=== PATIENT | male | born 1950 | race Caucasian/White ===

== ENCOUNTER 2023-10-06 09:43 | Outpatient (RCR) | payer MEDICARE, SELFPAY ==
--- NOTE | 2023-10-06 13:37 | OPREHPOC ---
Outpatient Therapy Plan of Care This is a Multidisciplinary Plan of Care that may contain components documented by all disciplines (PT, OT, and ST.) PT Problem 1 PT Problem #1 Knowledge Deficit PT Goal 1 Goal patient to demonstrate independence with HEP Target Visit 5 PT Problem 2 PT Problem #2 Pain PT Goal 1 Goal 1. patient to report highest pain at 2/10 2. patient to report ability to drive with no increase in pain Target Visit 10 PT Problem 3 PT Problem #3 Impaired Range of Motion PT Goal 1 Goal patient to demonstrate B cervical rotation to 60 deg to improve ability to drive Target Visit 10 PT Problem 4 PT Problem #4 Impaired Functional Mobil PT Goal 1 Goal 1. 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 patient to score 20% improvement on QuickDash 3. patient to report ability to shoot recreationally with no increase in R shoulder pain Target Visit 10
--- NOTE | 2023-10-06 13:38 | PTOPEVAL1 ---
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 He reports that he had R RTC repair about 10 years ago. He reports difficulty driving to look over his shoulder, mechanical work, and shooting. He report he feels a constant dull pain. Reported Pain Level Pain Score 5,0: Self Report Assessment PT Clinical Summary Mr. Cavanaugh is a 72 year old male who presents to PT with L sided neck pain and R shoulder pain. He demonstrates decreased R shoulder strength, decreased cervical ROM and impaired posture limiting his ability to turn his head to drive, perform mechanical work and participate in recreational shooting. He would benefit from skilled PT to address impairments and return to PLOF. Plan of Care Interventions Electrical Stimulation,Hot Pack/Cold Pack,Manual Therapy,Mechanical Traction,Neuro Re-education, Patient/Caregiver Educati,Therapeutic Activities, Therapeutic Exercise PT Services Indicated Yes Treatment Frequency and 2x weekly for 10 visits Duration These treatments will address the objective and functional deficits as defined above. The patient will be advanced safely and appropriately in order for the patient to progress towards his/her prior level of function. Additional exercises will be introduced and as well as a comprehensive home exercise program upon discharge, if needed, ?to ensure carryover of functional gains achieved in the clinic. This treatment plan has been reviewed and agreement upon by the patient.
--- NOTE | 2023-10-23 07:14 | PCPTNOTE ---
patient canceled due to feeling better
--- NOTE | 2023-10-29 10:22 | OPREHPOC ---
Outpatient Therapy Plan of Care This is a Multidisciplinary Plan of Care that may contain components documented by all disciplines (PT, OT, and ST.) PT Problem 1 PT Problem #1 Knowledge Deficit PT Goal 1 Goal patient to demonstrate independence with HEP Target Visit 5 Progress Met PT Problem 2 PT Problem #2 Pain PT Goal 1 Goal 1. patient to report highest pain at 2/10 2. patient to report ability to drive with no increase in pain Target Visit 10 Progress Met PT Problem 3 PT Problem #3 Impaired Range of Motion PT Goal 1 Goal patient to demonstrate B cervical rotation to 60 deg to improve ability to drive Target Visit 10 Progress Met PT Problem 4 PT Problem #4 Impaired Functional Mobil PT Goal 1 Goal 1. 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 patient to score 20% improvement on [employer]ash 3. patient to report ability to shoot recreationally with no increase in R shoulder pain Target Visit 10 Progress Met
--- NOTE | 2023-10-29 10:22 | PTOPDC ---
Assessment and note entered by Karyn Ac DPT Evaluation Information Assessment Status Discharge Diagnosis neck pain, R shoulder pain Onset 09/04/23 Subjective Information patient reports he has not had any pain recently. he report he is able to turn his head to drive with no limitations. he reports he is independent with HEP Reported Pain Level Pain Score 0,0: Self Report Assessment PT Clinical Summary Mr. Cavanaugh attended 6 visits of skilled PT and met all goals. 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 He has been compliant with HEP and is appropriate for DC at this time. Plan of Care PT Services Indicated No
== END 2023-10-29 10:29 | disposition home or self-care (01) ==
LOC: CHSPT 09:43
PROVIDERS: Visit Provider Physician Assistant Medical
DX: M54.2 Cervicalgia (principal); M67.911 Unspecified disorder of synovium and tendon, right shoulder
CPT/HCPCS: 97014; 97110; 97140; 97161; G0283

== ENCOUNTER 2024-05-10 00:37 | Day surgery (SDC) | payer MEDICARE, SELFPAY ==
[2024-04-29 11:42] VITALS: BMI 29.9
--- NOTE | 2024-04-29 11:53 | SUR.PREOP ---
Spoke with patient regarding medication plavix. Pt. verbalizes understanding that the last dose of plavixis to be taken on 05/04/2024 and the Endoscopist will instruct them when to restart after the procedure.
[2024-05-10] MEDS: LACTATED RINGERS 1,000 ML 150 ML IV CONT (08:10)
[2024-05-10 08:11] VITALS: BP 136/69; PULSE 55; RESP 16; TEMP 36.1; O2SAT 98
[2024-05-10 08:29] LABS: Glucose Point of Care 76 mg/dl (65-105)
--- NOTE | 2024-05-10 08:29 | WPDANESEPPF ---
Anes - Initial Pre Proc Eval Procedure: Operation Date: 05/10/24 09:00 Proposed Procedures p Colonoscopy - Deven Medina MD Date/Time: 05/10/24 08:29 Surgeon: Deven Medina MD Pre Op Diagnosis: Family history colon polyps Patient Data Age: 73 Gender: M Height: 1.83 m Weight: 100.6 kg Last Vital Signs Temp 96.9 F L 05/10/24 08:11 Pulse 55 L 05/10/24 08:11 Resp 16 05/10/24 08:11 BP 136/69 05/10/24 08:11 Pulse Ox 98 05/10/24 08:11 O2 Del Method Room Air 05/10/24 08:11 Allergies Allergy/AdvReac Type Severity Reaction Status Date / Time sertraline AdvReac worsening Uncoded 05/10/24 07:53 erectile dysfunction Home Medications Medication Instructions Recorded Confirmed Type aspirin 81 mg tablet,delayed 81 mg PO DAILY 04/04/22 05/10/24 History release (Adult Low Dose Aspirin) cyanocobalamin (vitamin B-12) 1,000 mcg PO DAILY 04/04/22 04/29/24 History 1,000 mcg capsule esomeprazole magnesium 20 mg 20 mg PO DAILY 04/04/22 05/10/24 History capsule,delayed release (Nexium) ferrous gluconate 324 mg (37.5 mg 324 mg PO BID 04/04/22 05/10/24 History iron) tablet ccbfrdgwhxrf-pec-ckubh acid-vit 1 tablet PO DAILY 04/04/22 05/10/24 History K-lycop 400 mcg-20 mcg-370 mcg tablet (Men's 50 Plus Multivitamin) blood sugar diagnostic (OneTouch #100 ea 10/09/22 04/29/24 Rx Ultra Test strips) ezetimibe 10 mg tablet 10 mg PO DAILY 11/10/22 05/10/24 History rosuvastatin 40 mg tablet 40 mg PO DAILY #90 tabs 12/25/23 05/10/24 Rx hydrochlorothiazide 12.5 mg tablet 12.5 mg PO DAILY #90 tabs 01/22/24 05/10/24 Rx tadalafil 20 mg tablet 20 mg PO DAILY PRN sexual activity 03/04/24 05/10/24 Rx #10 tabs valsartan 320 mg tablet 320 mg PO DAILY #90 tabs 03/04/24 05/10/24 Rx semaglutide 2 mg/dose (8 mg/3 mL) 2 mg (0.75 mL) subcut WEEKLY #9 mL 03/07/24 05/10/24 Rx subcutaneous pen injector (Ozempic) insulin degludec 200 unit/mL (3 104 unit (0.52 mL) subcut DAILY 03/25/24 05/10/24 Rx mL) subcutaneous pen #36 mL clopidogrel 75 mg tablet 75 mg PO DAILY #90 tabs 03/28/24 04/29/24 Rx amlodipine 10 mg tablet See Rx Instructions .Route 03/30/24 05/10/24 Rx .COMPLEX #90 tabs metformin 1,000 mg tablet 1,000 mg PO BID #180 tabs 04/29/24 05/10/24 Rx Patient hx anesthesia problems: none Family hx anesthesia problems: none Results Review: All pre-operative results and documents have been reviewed as part of the pre-operative evaluation. [facility] Past Medical History Medical History (Updated 03/07/24 @ 11:12 by Liana White PA-C) Anemia Anxiety CAD (coronary artery disease) Dr. Pathak Calcaneal spur of left foot Diabetes Dyslipidemia Erectile dysfunction FH: colon cancer in first degree relative <60 years old Hiatal hernia large Hypertension Left foot pain Plantar fasciitis of left foot Screening PSA (prostate specific antigen) Steatosis of liver Transaminitis hepatitis panel negative-2017 RUQ US + mild fatty infiltration- 2018 Surgical History Surgical History (Updated 09/05/23 @ 16:30 by Liana White PA-C) Hx of heart artery stent S/P rotator cuff repair right Family History Family History Father Heart disease Aorta aneurysm Mother Heart disease Sibling Carcinoma of colon Social History Social History (Updated 03/03/24 @ 09:08 by Luzmaria Herrera) Social History: Patient declined to answer [facility] questionnaire on 03/02/2024 Years smoked: 20 Smoking status: Former smoker Tobacco type: cigarettes Smoking end date: 08/03/96 Alcohol intake: current Drinks per week: 10 Substance use: never Substance use type: does not use Lack of Transportation: No Lack of Food: Never True Current Housing: I Have Housing Concerned About Future Housing: No Difficulty Paying Gas/Electric Bills: No Difficulty Paying for Meds: No Currently Une
--- NOTE | 2024-05-10 08:38 | PM.HPGS ---
History of Present Illness History of Present Illness Consent: Risks, benefits, and alternatives have been discussed and questions answered. Patient agrees to proceed with procedure. Chief complaint: Family history colon polyps Narrative: Carl Cavanaugh is a 73 year old male with colon polyp 3 years ago Review of Systems Review of Systems: All systems reviewed & are unremarkable except as noted in HPI and below PMFSH Past Medical History Medical History (Updated 05/10/24 @ 08:38 by Deven Medina MD) Anemia Anxiety CAD (coronary artery disease) Dr. Pathak Calcaneal spur of left foot Colon polyp Diabetes Dyslipidemia Erectile dysfunction FH: colon cancer in first degree relative <60 years old Hiatal hernia large Hypertension Left foot pain Plantar fasciitis of left foot Screening PSA (prostate specific antigen) Steatosis of liver Transaminitis hepatitis panel negative-2017 RUQ US + mild fatty infiltration- 2017 Surgical History Surgical History (Updated 09/05/23 @ 16:30 by Liana White PA-C) Hx of heart artery stent S/P rotator cuff repair right Family History Family History Father Heart disease Aorta aneurysm Mother Heart disease Sibling Carcinoma of colon Social History Social History (Updated 03/03/24 @ 09:08 by Luzmaria Herrera) Social History: Patient declined to answer [facility] questionnaire on 03/02/2024 Years smoked: 20 Smoking status: Former smoker Tobacco type: cigarettes Smoking end date: 08/03/96 Alcohol intake: current Drinks per week: 10 Substance use: never Substance use type: does not use Lack of Transportation: No Lack of Food: Never True Current Housing: I Have Housing Concerned About Future Housing: No Difficulty Paying Gas/Electric Bills: No Difficulty Paying for Meds: No Currently Unemployed: No Education: High School Diploma/GED Living arrangements: with family Occupation/Education: retired Meds Home Medications and Allergies Home Medications Medication Instructions Recorded Confirmed Type aspirin 81 mg tablet,delayed 81 mg PO DAILY 04/04/22 05/10/24 History release (Adult Low Dose Aspirin) cyanocobalamin (vitamin B-12) 1,000 mcg PO DAILY 04/04/22 04/29/24 History 1,000 mcg capsule esomeprazole magnesium 20 mg 20 mg PO DAILY 04/04/22 05/10/24 History capsule,delayed release (Nexium) ferrous gluconate 324 mg (37.5 mg 324 mg PO BID 04/04/22 05/10/24 History iron) tablet yzvodhjtpcrc-pwq-wumbb acid-vit 1 tablet PO DAILY 04/04/22 05/10/24 History K-lycop 400 mcg-20 mcg-370 mcg tablet (Men's 50 Plus Multivitamin) blood sugar diagnostic (OneTouch #100 ea 10/09/22 04/29/24 Rx Ultra Test strips) ezetimibe 10 mg tablet 10 mg PO DAILY 11/10/22 05/10/24 History rosuvastatin 40 mg tablet 40 mg PO DAILY #90 tabs 12/25/23 05/10/24 Rx hydrochlorothiazide 12.5 mg tablet 12.5 mg PO DAILY #90 tabs 01/22/24 05/10/24 Rx tadalafil 20 mg tablet 20 mg PO DAILY PRN sexual activity 03/04/24 05/10/24 Rx #10 tabs valsartan 320 mg tablet 320 mg PO DAILY #90 tabs 03/04/24 05/10/24 Rx semaglutide 2 mg/dose (8 mg/3 mL) 2 mg (0.75 mL) subcut WEEKLY #9 mL 03/07/24 05/10/24 Rx subcutaneous pen injector (Ozempic) insulin degludec 200 unit/mL (3 104 unit (0.52 mL) subcut DAILY 03/25/24 05/10/24 Rx mL) subcutaneous pen #36 mL clopidogrel 75 mg tablet 75 mg PO DAILY #90 tabs 03/28/24 04/29/24 Rx amlodipine 10 mg tablet See Rx Instructions .Route 03/30/24 05/10/24 Rx .COMPLEX #90 tabs metformin 1,000 mg tablet 1,000 mg PO BID #180 tabs 04/29/24 05/10/24 Rx Allergies Allergy/AdvReac Type Severity Reaction Status Date / Time sertraline AdvReac worsening Uncoded 05/10/24 07:53 erectile dysfunction Vital Signs Vital Signs - 24 hr 05/10/24 08:11 Temperature 96.9 F L Pulse Rate 55 L Respiratory Rate 16 Blood Pressure 136/69
[2024-05-10 08:59] VITALS: BP 111/63; PULSE 53; RESP 14; O2SAT 98
[2024-05-10 09:09] VITALS: BP 115/64; PULSE 55; RESP 15; O2SAT 93
[2024-05-10 09:19] VITALS: BP 120/70; PULSE 53; RESP 16; O2SAT 98
[2024-05-10 09:20] LABS: Glucose Point of Care 68 mg/dl (65-105)
[2024-05-10 09:39] LABS: Glucose Point of Care 107 mg/dl (65-105)
== END 2024-05-10 09:40 | disposition home or self-care (01) ==
PROVIDERS: PCP Physician Assistant Medical; Visit Provider Internal Medicine Gastroenterology
PROC: 0DJD8ZZ Inspection of Lower Intestinal Tract, Via Natural or Artificial Opening Endoscopic (ICD-10-PCS; CPT 45378; principal; 2024-05-10 09:00)
DX: Z12.11 Encounter for screening for malignant neoplasm of colon (principal); D12.2 Benign neoplasm of ascending colon; D12.3 Benign neoplasm of transverse colon; K64.8 Other hemorrhoids; E78.5 Hyperlipidemia, unspecified; I10 Essential (primary) hypertension; D64.9 Anemia, unspecified; F41.9 Anxiety disorder, unspecified; I25.10 Atherosclerotic heart disease of native coronary artery without angina pectoris; E11.9 Type 2 diabetes mellitus without complications; N52.9 Male erectile dysfunction, unspecified; E66.9 Obesity, unspecified; Z68.30 Body mass index [BMI] 30.0-30.9, adult; Z79.82 Long term (current) use of aspirin; Z79.85 Long-term (current) use of injectable non-insulin antidiabetic drugs; Z79.4 Long term (current) use of insulin; Z79.84 Long term (current) use of oral hypoglycemic drugs; Z79.02 Long term (current) use of antithrombotics/antiplatelets; Z98.890 Other specified postprocedural states; Z95.5 Presence of coronary angioplasty implant and graft; Z87.891 Personal history of nicotine dependence; Z80.0 Family history of malignant neoplasm of digestive organs; Z82.49 Family history of ischemic heart disease and other diseases of the circulatory system
CPT/HCPCS: 45380; 45385; 82948; 88305; J2003; J2704; J7120